=== PATIENT | female | born 1995 | race Caucasian/White ===

== ENCOUNTER 2020-10-03 12:32 | Outpatient (CLI) | payer OTHER, SELFPAY ==
[2020-10-03 13:45] LABS: Beta HCG Quantitative < 2.39 mIU/ML
== END 2020-10-03 12:33 | disposition home or self-care (01) ==
PROVIDERS: Visit Provider Obstetrics & Gynecology
DX: N92.6 Irregular menstruation, unspecified (principal)
CPT/HCPCS: 36415; 84702

== ENCOUNTER 2021-04-21 10:45 | Outpatient (CLI) | payer BC, SELFPAY ==
--- NOTE | ~2021-04-21 | XR_ITS ---
EXAMINATION: XR wrist RT min 3V INDICATION: Right wrist pain TECHNIQUE: Four views of the right wrist are obtained. COMPARISON: None available FINDINGS: There is no fracture, dislocation, or subluxation. The bones, soft tissues, and joint space s are normal. IMPRESSION: 1. No acute osseous abnormality. Reviewed, dictated and finalized at location B. [facility]
== END 2021-04-21 10:46 | disposition home or self-care (01) ==
PROVIDERS: PCP Family Medicine; Visit Provider Family Medicine
DX: M25.531 Pain in right wrist (principal)
CPT/HCPCS: 73110

== ENCOUNTER 2021-05-11 10:10 | Outpatient (CLI) | payer BC, SELFPAY ==
--- NOTE | ~2021-05-11 | US_ITS ---
EXAMINATION: US pelvic complete w TV EXAM DATE: 05/11/2021 10:50 INDICATION: R10.2 - Pelvic and perineal pain . TECHNIQUE: Pelvic transabdominal and transvaginal sonogram was performed. There are multiple graysca le and Doppler images available for interpretation. There is no prior study for comparison. FINDINGS: Uterus measures 6.3 x 4.5 x 2.9 cm, with IUD centrally located inside the endometrial cavi ty. Endometrial stripe measures 4 mm, within normal limits. There is no free pelvic fluid. Right adnexa: The ovary measures 3.6 x 1.9 x 3.0 cm with multiple peripheral follicles. Ovarian vascu lar flow confirmed. Left adnexa: The ovary measures 3.4 x 1.7 x 2.0 cm with multiple peripheral follicles. Ovarian vascul ar flow confirmed. IMPRESSION: 1. Polycystic ovaries. 2. IUD in position. Reviewed, dictated and finalized at location B.
== END 2021-05-11 10:11 | disposition home or self-care (01) ==
LOC: ANHIMG 10:16
PROVIDERS: PCP Family Medicine; Visit Provider Obstetrics & Gynecology
DX: T83.32XA Displacement of intrauterine contraceptive device, initial encounter (principal); R10.2 Pelvic and perineal pain; E28.2 Polycystic ovarian syndrome
CPT/HCPCS: 76830; 76856

== ENCOUNTER 2021-05-24 11:04 | Outpatient (CLI) | payer BC, SELFPAY ==
--- NOTE | ~2021-05-24 | XR_ITS ---
EXAMINATION: XR foot RT min 3V DATE: 05/24/2021 13:19 INDICATION: Right foot injury, initial encounter. TECHNIQUE: 4 views of right foot were obtained. COMPARISON: None. FINDINGS: Bone alignment is normal. No fracture. Joint spaces are well maintained. There is an enthes ophyte at posterior aspect of calcaneal tuberosity. IMPRESSION: 1. No fracture. Reviewed, dictated and finalized at location A. IMPRESSION: 1. No fracture.
== END 2021-05-24 11:05 | disposition home or self-care (01) ==
PROVIDERS: PCP Family Medicine; Visit Provider Family Medicine
DX: S99.921A Unspecified injury of right foot, initial encounter (principal)
CPT/HCPCS: 73630

== ENCOUNTER 2022-05-24 11:53 | Outpatient (CLI) | payer OTHER, BC, SELFPAY ==
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
== END 2022-05-24 11:54 ==
PROVIDERS: PCP Family Medicine; Visit Provider Family Medicine
DX: M25.512 Pain in left shoulder (principal); V89.2XXA Person injured in unspecified motor-vehicle accident, traffic, initial encounter
CPT/HCPCS: 73000